=== PATIENT | male | born 1995 | race Two or more races ===

== ENCOUNTER 2018-11-15 14:15 | Emergency (ER) | payer MEDICAID, OTHER ==
[~2018-11-15] VITALS: Ht 162.6 cm; Wt 111.1 kg
[~2018-11-15 14:15] MED LIST: LEVOFLOXACIN500 MG ORAL; NKM
--- NOTE | 2018-11-15 14:33 | NUR ---
ED Nurse Note: Pt from home came in due to abd. pain mor jesus his eft side x 10 days. Denies N/V and pain is worse when he sits. Pt also states ocassional dark spots in stools. AAO x4, ambulatory with non labored breathing.
--- NOTE | 2018-11-15 14:37 | Emergency Room Report ---
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 Denies any recent trauma he had reported Questionable spots of dark region in the stool which has resolved Allergies: Coded Allergies: No Known Allergies (Unverified , 10/30/16) Patient History Past Medical History: see triage record Pertinent Family History: none Reviewed Nursing Documentation: PMH: Agreed; PSxH: Agreed Nursing Documentation-PMH Past Medical History: No History, Except For Hx Cardiac Problems: No Hx Cancer: No Hx Gastrointestinal Problems: Yes - GASTRITIS Hx Neurological Problems: No Review of Systems All Other Systems: negative except mentioned in HPI Physical Exam Vital Signs Date Time Temp Pulse Resp B/P (MAP) Pulse Ox O2 Delivery O2 Flow Rate FiO2 11/15/18 14:23 98.4 104 20 108/70 (83) 94 Room Air Sp02 EP Interpretation: reviewed, normal General Appearance: well appearing, no apparent distress Head: normocephalic, atraumatic Eyes: bilateral eye PERRL, bilateral eye EOMI ENT: hearing grossly normal, normal pharynx, TMs + canals normal, uvula midline Neck: full range of motion, supple, no meningismus, no bony tend Respiratory: lungs clear, normal breath sounds, no rhonchi, no respiratory distress, no retraction, no accessory muscle use Cardiovascular #1: normal peripheral pulses, regular rate, rhythm, no edema, no gallop, no JVD, no murmur Gastrointestinal: normal bowel sounds, non tender - However subjectively points to the left upper quadrant left flank region, soft, no mass, no organomegaly, non-distended, no guarding, no hernia, no pulsatile mass, no rebound Genitourinary: no CVA tenderness Musculoskeletal: normal inspection Neurologic: oriented x3, responsive, field sales manager III-XII nml as tested, motor strength/ tone normal, sensory intact Psychiatric: mood/affect normal Lymphatic: normal inspection, no adenopathy Medical Decision Making Diagnostic Impression: Primary Impression: Abdominal pain ER Course With the history exam and presentation, multiple differentials considered, including but not limited to appendicitis, gastritis, cholecystitis, diverticulitis CT imaging does not reveal any obvious acute pathology blood work is at baseline levels on repeat evaluation patient abdomen remains soft Patient feels significantly improved and is stable for close outpatient follow- up Labs Test 11/15/18 14:45 White Blood Count 8.2 K/UL (4.8-10.8) Red Blood Count 5.66 M/UL (4.70-6.10) Hemoglobin 16.4 G/DL (14.2-18.0) Hematocrit 48.6 % (42.0-52.0) Mean Corpuscular Volume 86 FL (80-99) Mean Corpuscular Hemoglobin 28.9 PG (27.0-31.0) Mean Corpuscular Hemoglobin Concent 33.7 G/DL (32.0-36.0) Red Cell Distribution Width 11.5 % (11.6-14.8) Platelet Count 295 K/UL (150-450) Mean Platelet Volume 7.1 FL (6.5-10.1) Neutrophils (%) (Auto) 61.3 % (45.0-75.0) Lymphocytes (%) (Auto) 29.6 % (20.0-45.0) Monocytes (%) (Auto) 6.6 % (1.0-10.0) Eosinophils (%) (Auto) 1.7 % (0.0-3.0) Basophils (%) (Auto) 0.8 % (0.0-2.0) Urine Color Yellow Urine Appearance Clear Urine pH 7 (4.5-8.0) Urine Specific [place] 1.010 (1.005-1.035) Urine Protein 1+ (NEGATIVE) Urine Glucose (UA) Negative (NEGATIVE) Urine Ketones 1+ (NEGATIVE) Urine Blood Negative (NEGATIVE) Urine Nitrite Negative (NEGATIVE) Urine Bilirubin Negative (NEGATIVE) Urine Urobilinogen 1 MG/DL (0.0-1.0) Urine Leukocyte Esterase Negative (NEGATIVE) Urine RBC 0-2 /HPF (0 - 0) Urine WBC 0-2 /HPF (0 - 0) Urine Squamous Epithelial Cells None /LPF (NONE/OCC) Urine Bacteria Few /HPF (NONE) Sodium Level 137 MMOL/L (136-145) Potassium Level 3.6 MMOL/L (3.5-5.1) Chloride Level 103 MMOL/L (98-107) Carbon Dioxide Level 26 MMOL/L (21-32) Anion Gap 8 mmol/L (5-15) Blood Urea Nitrogen 12 mg/dL (7-18) Creatinine 1.2 MG/DL (0.55-1.30) Estimat Glomerular Filtration Rate > 60 mL/min (>60) Glucose Level 109 MG/DL (74-106) Calcium Level 9.1 MG/DL (8.5-10.1) Total Bilirubin 0.5 MG/DL (0.2-1.0) Aspartate Amino Transf (AST/SGOT) 20 U/L (15-37) Alanine Aminotransferase (ALT/SGPT) 36 U/L (12-78) Alkaline Phosphatase 89 U/L (46-116) Total Protein 7.7 G/DL (6.4-8.2) Albumin 3.8 G/DL (3.4-5.0) Globulin 3.9 g/dL Albumin/Globulin Ratio 1.0 (1.0-2.7) Lipase 104 U/L (73-393) CT/MRI/US Diagnostic Results CT/MRI/US Diagnostic Results : Impression CT abdomen pelvisIMPRESSION: Hepatomegaly with fatty infiltration Mild platelike atelectasis at the right lung base. Last Vital Signs Date Time Temp Pulse Resp B/P (MAP) Pulse Ox O2 Delivery O2 Flow Rate FiO2 11/15/18 14:23 98.4 104 20 108/70 (83) 94 Room Air Status: improved Disposition: HOME, SELF-CARE Condition: Improved Scripts Famotidine (PEPCID AC) 20 Mg Tablet 20 MG PO DAILY, #12 TAB Prov: Brian Reynoso DO 11/15/18 Additional Instructions: Patient is provided with the discharge instructions notified to follow up with primary doctor in the next 2-3 days otherwise return to the er with any worsening symptoms. Please note that this report is being documented using [employer] technology. This can lead to erroneous entry secondary to incorrect interpretation by the dictating instrument. Brian Reynoso DO Nov 15, 2018 14:37
--- NOTE | 2018-11-15 14:55 | NUR ---
ED Nurse Note: Collected blod/urine then sent.
[2018-11-15 15:03] LABS: APPEARANCE,URINE CLEAR; BILIRUBIN, URINE NEGATIVE (NEGATIVE); GLUCOSE, URINE (UA) NEGATIVE (NEGATIVE); KETONES,URINE 1+ (NEGATIVE); LEUKOCYTE ESTERASE ,URINE NEGATIVE (NEGATIVE); NITRITE,URINE NEGATIVE (NEGATIVE); PH,URINE 7 (4.5-8.0); PROTEIN,URINE 1+ (NEGATIVE); UROBILINOGEN,URINE 1 MG/DL (0.0-1.0)
[2018-11-15 15:08] LABS: BASOPHILS % (AUTO) 0.8 % (0.0-2.0); EOSINOPHILS % (AUTO) 1.7 % (0.0-3.0); HEMATOCRIT 48.6 % (42.0-52.0); HEMOGLOBIN 16.4 G/DL (14.2-18.0); LYMPHOCYTES % (AUTO) 29.6 % (20.0-45.0); MEAN CORPUSCULAR VOLUME 86 FL (80-99); MONOCYTES % (AUTO) 6.6 % (1.0-10.0); NEUTROPHILS % (AUTO) 61.3 % (45.0-75.0); PLATELET COUNT 295 K/UL (150-450); RED BLOOD COUNT 5.66 M/UL (4.70-6.10); RED CELL DISTRIBUTION WIDTH 11.5 % (11.6-14.8); WHITE BLOOD COUNT 8.2 K/UL (4.8-10.8)
[2018-11-15 15:09] LABS: COLOR,URINE YELLOW
[2018-11-15 15:11] LABS: ANION GAP 8 mmol/L (5-15); BLOOD UREA NITROGEN 12 mg/dL (7-18); CALCIUM 9.1 MG/DL (8.5-10.1); CARBON DIOXIDE 26 MMOL/L (21-32); CHLORIDE 103 MMOL/L (98-107); CREATININE 1.2 MG/DL (0.55-1.30); POTASSIUM 3.6 MMOL/L (3.5-5.1); SODIUM 137 MMOL/L (136-145)
[2018-11-15 15:16] LABS: ALANINE AMINOTRANSFERASE 36 U/L (12-78); ALBUMIN 3.8 G/DL (3.4-5.0); ALKALINE PHOSPHATASE 89 U/L (46-116); ASPARTATE AMINO TRANSFERASE 20 U/L (15-37); BILIRUBIN,TOTAL 0.5 MG/DL (0.2-1.0)
--- NOTE | 2018-11-15 15:18 | NUR ---
ED Nurse Note: Pt taken to CT.
[2018-11-15 15:28] VITALS: BP 112/75
--- NOTE | 2018-11-15 15:28 | NUR ---
ED Nurse Note: Pt came back from CT. VSS. Waiting for results.
--- NOTE | 2018-11-15 15:59 | Diagnostic Imaging Report ---
Indication: Abdominal pain Technique: Continuous helical transaxial imaging of the abdomen and pelvis was obtained from the lung bases to the pubic symphysis. No intravenous contrast was administered. Coronal 2-D reformats were also obtained. Automatic Exposure Control was utilized. Total Dose length Product (DLP): 1095.[address] Dose Index Volume (CTDIvol): 19.51 mGy Comparison: none Findings: There is ill-defined parenchymal density at the right lung base probably atelectasis. This is adjacent to the diaphragm. The liver is hypodense enlarged having a craniocaudal dimension of about 19 cm. Gallbladder is unremarkable. The spleen is normal in size. There is no hydronephrosis or definite renal stones identified. The appendix is normal. Bowel gas pattern is nonobstructive. There is no free fluid. IMPRESSION: Hepatomegaly with fatty infiltration Mild platelike atelectasis at the right lung base. The CT scanner at [facility] is accredited by the [employer] and the scans are performed using dose optimization techniques as appropriate to a performed exam including Automatic Exposure control.
[2018-11-15] MEDS ORDERED: PEPCID AC20 M2 PO (16:46)
[2018-11-15 16:53] VITALS: BP 125/70
--- NOTE | 2018-11-15 16:53 | NUR ---
ER DISCHARGE NOTE: Patient is cleared to be discharged per ERMD, pt is aox4, on room air, with stable vital signs. pt was given dc and prescription instructions, pt was able to verbalize understanding, pt id band removed without complications. pt is able to ambulate with steady gait. pt took all belongings.
== END 2018-11-15 16:53 | disposition home or self-care (01) ==
LOC: EMR 16:30
DX: R10.10 Upper abdominal pain, unspecified (principal); K76.0 Fatty (change of) liver, not elsewhere classified; R16.0 Hepatomegaly, not elsewhere classified; Z87.19 Personal history of other diseases of the digestive system
CPT/HCPCS: 36415; 74176; 80053; 81003; 83690; 85025; 99284

== ENCOUNTER 2018-11-27 09:25 | Emergency (ER) | payer OTHER ==
[~2018-11-27] VITALS: Ht 162.6 cm; Wt 112.5 kg
[~2018-11-27 09:25] MED LIST changes: +PEPCID AC20 M2 PO
[2018-11-27 09:34] VITALS: BP 110/67
--- NOTE | 2018-11-27 09:55 | Emergency Room Report ---
History of Present Illness General Chief Complaint: Abdominal Pain Source: Patient Present Illness HPI Patient is a 23-year-old male presents after persistent left-sided abdominal pain for approximately 1 month. Patient reports having prior history of gastritis. He had recently been taking acid blockers. Prior ER visit which she had CT imaging performed. He reports having continued intermittent pain. He reports having intermittent blood-streaked stool. He denies any bridger bloody diarrhea. He denies any fever. He had not been vomiting. He denies any other locations of discomfort. Allergies: Coded Allergies: No Known Allergies (Unverified , 10/30/16) Patient History Past Medical History: see triage record Reviewed Nursing Documentation: PMH: Agreed; PSxH: Agreed Nursing Documentation-PMH Past Medical History: No History, Except For Hx Cardiac Problems: No Hx Cancer: No Hx Gastrointestinal Problems: Yes - GASTRITIS Hx Neurological Problems: No Review of Systems All Other Systems: negative except mentioned in HPI Physical Exam Vital Signs Date Time Temp Pulse Resp B/P (MAP) Pulse Ox O2 Delivery O2 Flow Rate FiO2 11/27/18 09:34 97.9 81 18 110/67 (81) 94 Room Air Sp02 EP Interpretation: reviewed, normal General Appearance: normal inspection, well appearing, no apparent distress, alert, GCS 15, obese Head: atraumatic ENT: normal ENT inspection, hearing grossly normal, normal voice Neck: normal inspection, full range of motion, supple, no bony tend Respiratory: normal inspection, lungs clear, normal breath sounds, no respiratory distress, no retraction, no wheezing Cardiovascular #1: regular rate, rhythm, no edema Gastrointestinal: normal inspection, normal bowel sounds, non tender, soft, no guarding, no hernia Genitourinary: no CVA tenderness Musculoskeletal: normal inspection, back normal, normal range of motion Neurologic: normal inspection, alert, oriented x3, responsive, lubricating machine tender III-XII nml as tested, motor strength/tone normal, speech normal Psychiatric: normal inspection, judgement/insight normal, mood/affect normal Medical Decision Making Diagnostic Impression: Primary Impression: Abdominal pain ER Course Patient presented for abdominal pain. Differential diagnosis include was not limited to colitis, ulcer disease, hemorrhoids, Inflammatory bowel disease among others. Patient has a benign exam and does not appear to require any further imaging or laboratory testing at this time. patient was noted to have recent CT imaging which was unremarkable. Patient was noted to have prior history of fatty liver.Patient was given medication for symptomatic treatment. He is advised to follow-up with his primary care physician for GI referral. He is advised to return if worse. Last Vital Signs Date Time Temp Pulse Resp B/P (MAP) Pulse Ox O2 Delivery O2 Flow Rate FiO2 11/27/18 09:34 97.9 81 18 110/67 (81) 94 Room Air Status: improved Disposition: HOME, SELF-CARE Condition: Stable Scripts Docusate Sodium* (COLACE*) 100 Mg Capsule 100 MG ORAL TWICE A DAY, #20 CAP Prov: David Manley MD 11/27/18 Omeprazole (OMEPRAZOLE) 20 Mg Capsule.dr 20 MG ORAL DAILY, #30 CAP Prov: David Manley MD 11/27/18 Dicyclomine Hcl* (DICYCLOMINE HCL*) 10 Mg Capsule 10 MG ORAL QID for pain, #20 CAP Prov: David Manley MD 11/27/18 David Manley MD Nov 27, 2018 09:55
[2018-11-27] MEDS ORDERED: Lidocaine 2% Visc 15ml soln ORAL ONE (10:00)
[2018-11-27] MEDS ORDERED: DICYCLOMINE HCL10 MG ORAL (10:00)
[2018-11-27] MEDS ORDERED: Dicyclomine HCl 10mg/5ml oral soln ORAL ONE (10:00)
[2018-11-27] MEDS ORDERED: OMEPRAZOLE20 M2 ORAL (10:00)
[2018-11-27] MEDS ORDERED: COLACE100 MG ORAL (10:00)
[2018-11-27 10:09] VITALS: BP 110/67
== END 2018-11-27 10:10 | disposition home or self-care (01) ==
LOC: EMR 10:10
DX: R10.9 Unspecified abdominal pain (principal); K92.1 Melena
CPT/HCPCS: 99282

== ENCOUNTER 2019-03-12 12:42 | Emergency (ER) | payer OTHER ==
[~2019-03-12] VITALS: Ht 162.6 cm; Wt 107.0 kg
[~2019-03-12 12:42] MED LIST changes: +COLACE100 MG ORAL; +DICYCLOMINE HCL10 MG ORAL; +OMEPRAZOLE20 M2 ORAL
[2019-03-12 13:00] VITALS: BP 114/72
[2019-03-12] MEDS ORDERED: Hydromorphone 0.5mg/0.5ml inj IM ONE (13:00)
[2019-03-12] MEDS ORDERED: Acetaminophen 500mg (ES) tab ORAL ONE (13:00)
[2019-03-12] MEDS ORDERED: Ketorolac 30mg Inj IM ONE (13:00)
[2019-03-12] MEDS ORDERED: Methocarbamol 750mg tab ORAL ONE (13:00)
--- NOTE | 2019-03-12 13:00 | NUR ---
ED Nurse Note: Pt walked into ED c/o lower right back pain radiating to left side since 0800 this morning. Sharp shooting pain. Pt denies numbness/tingling. Pain worse when standing.
[2019-03-12] MEDS ORDERED: NAPROXEN250 MG ORAL (13:03)
[2019-03-12] MEDS ORDERED: ACETAMINOPHEN500 M5 ORAL (13:03)
[2019-03-12] MEDS ORDERED: LIDODERM700 M1 TOPIC (13:03)
[2019-03-12] MEDS ORDERED: ROBAXIN-750750 MG PO (13:03)
--- NOTE | 2019-03-12 13:03 | Emergency Room Report ---
History of Present Illness General Chief Complaint: Back Pain-No Injury Source: Patient Present Illness HPI 23-year-old male presents with right lower back pain, patient felt the pain when he woke up this morning and got up from bed, worsened with movement, bending over, severity is mild no bowel bladder retention/incontinence, no perineal numbness no focal weakness of the legs, gait is intact, no fevers no chills no history of IV drug use, alleviating factors resting described as sharp /achy Allergies: Coded Allergies: No Known Allergies (Unverified , 10/30/16) Patient History Past Medical History: see triage record Reviewed Nursing Documentation: PMH: Agreed; PSxH: Agreed Nursing Documentation-PMH Past Medical History: No History, Except For Hx Cancer: No Hx Gastrointestinal Problems: Yes - GASTRITIS Hx Neurological Problems: No Review of Systems All Other Systems: negative except mentioned in HPI Physical Exam Vital Signs Date Time Temp Pulse Resp B/P (MAP) Pulse Ox O2 Delivery O2 Flow Rate FiO2 03/12/19 12:53 97.5 98 17 114/72 (86) 96 Room Air General Appearance: well appearing, no apparent distress Head: normocephalic, atraumatic ENT: hearing grossly normal, normal voice Neck: full range of motion, supple Respiratory: no respiratory distress, speaking full sentences Musculoskeletal: other - No step-offs, no midline tenderness, tenderness to palpation right lower back paraspinal, gait intact, strength intact bilateral lower extremities Neurologic: alert, normal gait Psychiatric: mood/affect normal Skin: no rash Medical Decision Making Diagnostic Impression: Primary Impression: Back pain Qualified Codes: M54.5 - Low back pain ER Course The patient presents with acute onset of back pain after getting up. Clinically this patient can be ruled out for serious pathology given there is a completely normal neurological exam, no history of IV drug use, and no history of bowel or bladder incontinence, no perianal numbness/tingling, no constipation or urinary retention. Once the patient's pain was adequately controlled, the patient was able to ambulate and be discharged in stable condition with anticipatory guidance provided. Nephew drove him. Last Vital Signs Date Time Temp Pulse Resp B/P (MAP) Pulse Ox O2 Delivery O2 Flow Rate FiO2 03/12/19 12:53 97.5 98 17 114/72 (86) 96 Room Air Disposition: HOME, SELF-CARE Condition: Stable Scripts Methocarbamol* (ROBAXIN-750*) 750 Mg Tablet 750 MG PO QID, #28 TAB 0 Refills Prov: Eze Gibbs MD 03/12/19 Lidocaine Patch* (Lidoderm Patch*) 1 Each Adh..patch 1 PATCH TOPIC DAILY, #7 PATCH 0 Refills Patch(es) may remain in place for up to 12 hours in any 24-hour period. Prov: Eze Gibbs MD 03/12/19 Acetaminophen (Acetaminophen) 500 Mg Tablet 1000 MG ORAL Q8H for PAIN, #60 TAB Prov: Eze Gibbs MD 03/12/19 Naproxen* (NAPROSYN*) 250 Mg Tablet 250 MG ORAL BID PRN for For Pain, #20 TAB 0 Refills Prov: Eze Gibbs MD 03/12/19 Referrals: [facility] Departure Forms: Return to Work Return to Work Date: Mar 13, 2019 Patient Instructions: Back Pain, Adult Additional Instructions: The patient was provided with discharge instructions, notified to follow-up with a primary care doctor and or specialist in the next 24-48 hours, and to return to the ED if they have worsening of their symptoms. Please note that this report is being documented using [employer] technology. This can lead to erroneous entry secondary to incorrect interpretation by the dictating instrument. Eze Gibbs MD Mar 12, 2019 13:03
--- NOTE | 2019-03-12 13:05 | NUR ---
ED Nurse Note: ERMD at bedside.
[2019-03-12 13:23] VITALS: BP 112/70
--- NOTE | 2019-03-12 13:23 | NUR ---
ED Nurse Note: Pt cleared by ERMD for discharge. DC instructions/prescription was given and explained to pt and verbalized understanding of teachings. All medical deviecs such as ID band removed. Pt is AAO x4, ambulatory and left with all personal belongings.
== END 2019-03-12 13:23 | disposition home or self-care (01) ==
LOC: EMR 12:59
DX: M54.5 Low back pain (principal)
CPT/HCPCS: 96372; 99283; J1170; J1885; J8540